=== PATIENT | female | born 1975 | race Native Hawaiian/Other Pacific Islander ===

== ENCOUNTER 2017-09-20 18:57 | Emergency (ER) | payer BC, OTHER ==
[2017-09-20 19:03] VITALS: RESP 18
[2017-09-20] MEDS ORDERED: ACETAMINOPHEN TAB 500 MG TAB PO STA (19:09)
[2017-09-20] MEDS ORDERED: IBUPROFEN 600 MG TAB PO STA (19:09)
--- NOTE | 2017-09-20 19:16 | ED ---
General Adult HPI - General Chief complaint: Upper Respiratory Infection Stated complaint: COUGH Time Seen by Provider: 09/20/17 19:06 Source: patient, RN notes reviewed Mode of arrival: ambulatory Limitations: no limitations - History of Present Illness Initial comments: Patient is a pleasant 42-year-old female presenting to the emergency department with cough. Symptoms have been present the past 2-3 days. Patient has cough and is just starting to get some mild sputum production. Patient does have some associated dyspnea. Patient also has some congestion and sore throat. Patient has noticed fevers today. No recent Tylenol or Motrin. Patient does have a history of sarcoidosis and is on methotrexate for this. - Related Data Home Medications Medication Instructions Recorded Confirmed FLUoxetine HCL [PROzac] 40 mg PO DAILY 09/20/17 09/20/17 Folic Acid 1 mg PO DAILY 09/20/17 09/20/17 Methotrexate Sodium [Methotrexate] 12.5 mg PO MO 09/20/17 09/20/17 Topiramate [Topamax] 100 mg PO BID 09/20/17 09/20/17 Previous Rx's Medication Instructions Recorded Oseltamivir [Tamiflu] 75 mg PO Q12HR #9 cap 09/20/17 Allergies Allergy/AdvReac Type Severity Reaction Status Date / Time No Known Allergies Allergy Verified 09/20/17 19:43 Review of Systems ROS Statement: Those systems with pertinent positive or pertinent negative responses have been documented in the HPI. ROS Other: All systems not noted in ROS Statement are negative. Constitutional: Reports: fever Eyes: Denies: eye pain ENT: Reports: throat pain, congestion. Denies: ear pain Respiratory: Reports: cough, dyspnea Cardiovascular: Denies: chest pain Endocrine: Reports: fatigue Gastrointestinal: Denies: abdominal pain Genitourinary: Denies: dysuria Musculoskeletal: Denies: back pain Skin: Denies: rash Neurological: Denies: weakness Past Medical History Past Medical History: Chest Pain / Angina, Hypertension, Seizure Disorder Additional Past Medical History / Comment(s): Enlarged heart History of Any Multi-Drug Resistant Organisms: None Reported Additional Past Surgical History / Comment(s): Cysts removed x6, OVARIAN SURGERY Past Anesthesia/Blood Transfusion Reactions: No Reported Reaction Past Psychological History: Anxiety, Depression Smoking Status: Current every day smoker Past Alcohol Use History: Occasional Past Drug Use History: None Reported - Past Family History Mother Family Medical History: Renal Disease General Exam Limitations: no limitations General appearance: alert, in no apparent distress Head exam: Present: atraumatic Eye exam: Present: normal appearance, PERRL ENT exam: Present: normal oropharynx Neck exam: Present: normal inspection Respiratory exam: Present: normal lung sounds bilaterally Cardiovascular Exam: Present: regular rate, normal rhythm GI/Abdominal exam: Present: soft. Absent: tenderness Extremities exam: Present: normal inspection Neurological exam: Present: alert Psychiatric exam: Present: normal affect, normal mood Skin exam: Present: normal color Course Vital Signs 09/20/17 18:59 Temperature 101.9 F H Pulse Rate 80 Respiratory 18 Rate Blood Pressure 150/97 O2 Sat by Pulse 99 Oximetry - Reevaluation(s) Reevaluation #1: 09/20/17 19:58 Patient clarifies she is on methotrexate, not chemotherapy Medical Decision Making - Medical Decision Making Patient reevaluated and is starting to feel somewhat better. Patient updated on results. Patient states she does have an appointment in the morning with her buddhist monk. Patient will be covered with Tamiflu even though symptoms are greater than 2 days secondary to being on methotrexate. Labs and x-ray looks well. - Lab Data Result diagrams: 09/20/17 19:29 09/20/17 19:29 Lab Results 09/20/17 09/20/17 09/20/17 Range/Units 19:29 19:29 19:29 WBC 4.3 (3.8-10.6) k/uL RBC 4.49 (3.80-5.40) m/uL Hgb 13.1 (11.4-16.0) gm/dL Hct 39.8 (34.0-46.0) % MCV 88.7 (80.0-100.0) fL MCH 29.2 (25.0-35.0) pg MCHC 33.0 (31.0-37.0) g/dL RDW 14.2 (11.5-15.5) % Plt Count 194 (150-450) k/uL Neutrophils % 82 % Lymphocytes % 8 % Monocytes % 6 % Eosinophils % 2 % Basophils % 1 % Neutrophils # 3.5 (1.3-7.7) k/uL Lymphocytes # 0.3 L (1.0-4.8) k/uL Monocytes # 0.2 (0-1.0) k/uL Eosinophils # 0.1 (0-0.7) k/uL Basophils # 0.0 (0-0.2) k/uL Sodium 142 (137-145) mmol/L Potassium 4.3 (3.5-5.1) mmol/L Chloride 107 (98-107) mmol/L Carbon Dioxide 24 (22-30) mmol/L Anion Gap 11 mmol/L BUN 14 (7-17) mg/dL Creatinine 0.90 (0.52-1.04) mg/dL Est GFR (CKD-EPI)AfAm >90 (>60 ml/min/1.73 sqM) Est GFR (CKD-EPI)NonAf 79 (>60 ml/min/1.73 sqM) Glucose 98 (74-99) mg/dL Plasma Lactic Acid Yaya 0.9 (0.7-2.0) mmol/L Calcium 9.1 (8.4-10.2) mg/dL Total Bilirubin 0.2 (0.2-1.3) mg/dL AST 19 (14-36) U/L ALT 23 (9-52) U/L Alkaline Phosphatase 64 (38-126) U/L Total Protein 7.4 (6.3-8.2) g/dL Albumin 4.0 (3.5-5.0) g/dL Urine Color Urine Appearance (Clear) Urine pH (5.0-8.0) Ur Specific [place] (1.001-1.035) Urine Protein (Negative) Urine Glucose (UA) (Negative) Urine Ketones (Negative) Urine Blood (Negative) Urine Nitrite (Negative) Urine Bilirubin (Negative) Urine Urobilinogen (<2.0) mg/dL Ur Leukocyte Esterase (Negative) Ur Squamous Epith Cells (0-4) /hpf Amorphous Sediment (None) /hpf Urine Mucus (None) /hpf Influenza Type A RNA (Not Detectd) Influenza Type B (PCR) (Not Detectd) 09/20/17 09/20/17 Range/Units 19:29 19:29 WBC (3.8-10.6) k/uL RBC (3.80-5.40) m/uL Hgb (11.4-16.0) gm/dL Hct (34.0-46.0) % MCV (80.0-100.0) fL MCH (25.0-35.0) pg MCHC (31.0-37.0) g/dL RDW (11.5-15.5) % Plt Count (150-450) k/uL Neutrophils % % Lymphocytes % % Monocytes % % Eosinophils % % Basophils % % Neutrophils # (1.3-7.7) k/uL Lymphocytes # (1.0-4.8) k/uL Monocytes # (0-1.0) k/uL Eosinophils # (0-0.7) k/uL Basophils # (0-0.2) k/uL Sodium (137-145) mmol/L Potassium (3.5-5.1) mmol/L Chloride (98-107) mmol/L Carbon Dioxide (22-30) mmol/L Anion Gap mmol/L BUN (7-17) mg/dL Creatinine (0.52-1.04) mg/dL Est GFR (CKD-EPI)AfAm (>60 ml/min/1.73 sqM) Est GFR (CKD-EPI)NonAf (>60 ml/min/1.73 sqM) Glucose (74-99) mg/dL Plasma Lactic Acid Yaya (0.7-2.0) mmol/L Calcium (8.4-10.2) mg/dL Total Bilirubin (0.2-1.3) mg/dL AST (14-36) U/L ALT (9-52) U/L Alkaline Phosphatase (38-126) U/L Total Protein (6.3-8.2) g/dL Albumin (3.5-5.0) g/dL Urine Color Light Yellow Urine Appearance Cloudy H (Clear) Urine pH 7.5 (5.0-8.0) Ur Specific [place] 1.013 (1.001-1.035) Urine Protein Negative (Negative) Urine Glucose (UA) Negative (Negative) Urine Ketones Negative (Negative) Urine Blood Negative (Negative) Urine Nitrite Negative (Negative) Urine Bilirubin Negative (Negative) Urine Urobilinogen <2.0 (<2.0) mg/dL Ur Leukocyte Esterase Negative (Negative) Ur Squamous Epith Cells 1 (0-4) /hpf Amorphous Sediment Rare H (None) /hpf Urine Mucus Rare H (None) /hpf Influenza Type A RNA Not Detected (Not Detectd) Influenza Type B (PCR) Detected H (Not Detectd) Disposition Clinical Impression: Influenza Disposition: HOME SELF-CARE Condition: Stable Instructions: Influenza (ED) Additional Instructions: Please follow-up with your buddhist monk in the morning as scheduled. Hold methotrexate until further discussed with your buddhist monk. Please also follow-up with your primary care physician tomorrow. Return for uncontrolled fever, difficulty breathing, worsening symptoms or other concerns. Prescriptions: Oseltamivir [Tamiflu] 75 mg PO Q12HR #9 cap Referrals: Ambrose Lopez MD [Primary Care Provider] - 1-2 days Time of Disposition: 20:31
[2017-09-20] MEDS: SODIUM CHLORIDE 0.9% 500 ML IV SCH ×2 (19:31→19:32)
[2017-09-20 19:54] LABS: Basophils % (A) 1 %; Eosinophils # (A) 0.1 k/uL (0-0.7); Eosinophils % (A) 2 %; HCT 39.8 % (34.0-46.0); HGB 13.1 gm/dL (11.4-16.0); Lymphocytes # (A) 0.3 k/uL (1.0-4.8); Lymphocytes % (A) 8 %; MCH 29.2 pg (25.0-35.0); MCV 88.7 fL (80.0-100.0); Monocytes # (A) 0.2 k/uL (0-1.0); Monocytes % (A) 6 %; Neutrophils # (A) 3.5 k/uL (1.3-7.7); Neutrophils % (A) 82 %; Platelet Count 194 k/uL (150-450); RBC 4.49 m/uL (3.80-5.40); RDW 14.2 % (11.5-15.5); WBC 4.3 k/uL (3.8-10.6)
[2017-09-20 20:02] LABS: Amorphous Sediment,Urine Rare /hpf; Appearance,Urine Cloudy (Clear); Bilirubin,Urine Negative (Negative); Blood,Urine Negative (Negative); Color,Urine Light Yellow; Glucose,Urine (UA) Negative (Negative); Ketones,Urine Negative (Negative); Leukocyte Esterase,Urine Negative (Negative); Mucus,Urine Rare /hpf; Nitrite,Urine Negative (Negative); PH, Urine 7.5 (5.0-8.0); Protein,Urine Negative (Negative); Specific Gravity,Urine 1.013 (1.001-1.035); Squamous Epithelial Cell,Urine 1 /hpf (0-4); Urobilinogen,Urine <2.0 mg/dL (<2.0)
--- NOTE | 2017-09-20 20:07 | XR ---
EXAMINATION: XR chest 2V DATE AND TIME: 09/20/2017 7:48 PM ORDERING PROVIDER: Duran Luque DO CLINICAL INDICATION: Fever and cough, history of sarcoidosis TECHNIQUE: PA and lateral COMPARISON: 11/18/2013 DESCRIPTION: The lungs are clear. The pleural spaces are negative. The cardiac silhouette is not enlarged. The mediastinal and pleural silhouettes are unremarkable. The skeletal structures are intact without focal findings. The soft tissues are unremarkable. IMPRESSION: NO ACUTE PROCESS.
[2017-09-20 20:18] LABS: ALT 23 U/L (9-52); AST 19 U/L (14-36); Alkaline Phosphatase 64 U/L (38-126); Anion Gap 11 mmol/L; Blood Urea Nitrogen 14 mg/dL (7-17); Calcium 9.1 mg/dL (8.4-10.2); Carbon Dioxide 24 mmol/L (22-30); Chloride 107 mmol/L (98-107); Glucose 98 mg/dL (74-99); Potassium 4.3 mmol/L (3.5-5.1); Sodium 142 mmol/L (137-145); Total Bilirubin 0.2 mg/dL (0.2-1.3); Total Protein 7.4 g/dL (6.3-8.2)
[2017-09-20] MEDS ORDERED: OSELTAMIVIR 75 MG CAP PO STA (20:28)
[2017-09-20 20:51] VITALS: BP 118/87; PULSE 69; TEMP 98.2
== END 2017-09-20 20:51 | disposition home or self-care (01) ==
LOC: EC 18:57
DX: J11.1 Influenza due to unidentified influenza virus with other respiratory manifestations (principal); G40.909 Epilepsy, unspecified, not intractable, without status epilepticus; F32.9 Major depressive disorder, single episode, unspecified; F41.9 Anxiety disorder, unspecified; F17.200 Nicotine dependence, unspecified, uncomplicated; Z79.899 Other long term (current) drug therapy
CPT/HCPCS: 36415; 71046; 80053; 81001; 83605; 85025; 87040; 87070; 87086; 87205; 87502; 96360; 96361; 99283

== ENCOUNTER → 2018-10-31 | Outpatient (CLI) | payer BC, OTHER ==
[2018-10-31 08:22] LABS: Appearance,Urine Clear (Clear); Bilirubin,Urine Negative (Negative); Blood,Urine Negative (Negative); Color,Urine Yellow; Glucose,Urine (UA) Negative (Negative); Ketones,Urine Negative (Negative); Leukocyte Esterase,Urine Negative (Negative); Nitrite,Urine Negative (Negative); Protein,Urine Trace (Negative); Specific Gravity,Urine 1.026 (1.001-1.035)
[2018-10-31 08:28] LABS: Basophils % (A) 1 %; Eosinophils # (A) 0.3 k/uL (0-0.7); Eosinophils % (A) 7 %; HCT 44.4 % (34.0-46.0); HGB 14.3 gm/dL (11.4-16.0); Lymphocytes # (A) 0.7 k/uL (1.0-4.8); Lymphocytes % (A) 17 %; MCH 27.6 pg (25.0-35.0); MCHC 32.3 g/dL (31.0-37.0); MCV 85.5 fL (80.0-100.0); Monocytes # (A) 0.2 k/uL (0-1.0); Monocytes % (A) 6 %; Neutrophils # (A) 2.8 k/uL (1.3-7.7); Neutrophils % (A) 67 %; Platelet Count 224 k/uL (150-450); RDW 14.1 % (11.5-15.5); WBC 4.1 k/uL (3.8-10.6)
--- NOTE | 2018-10-31 08:42 | XR ---
EXAMINATION TYPE: XR chest 2V DATE OF EXAM: 10/31/2018 COMPARISON: 09/20/2018 HISTORY: Chest pain TECHNIQUE: Frontal and lateral views of the chest are obtained. FINDINGS: There is no focal air space opacity. No evidence for pneumothorax. No pleural effusion. The cardiac silhouette size is within normal limits. The osseous structures are grossly intact. IMPRESSION: 1. No acute cardiopulmonary process.
[2018-10-31 12:55] LABS: Erythrocyte Sedimentation Rate 6 mm/hr (0-20)
[2018-10-31 18:39] LABS: Albumin 3.9 g/dL (3.80-4.90); Albumin/Globulin Ratio 1.77 (1.60-3.17); Anion Gap 8.4 mmol/L (4.00-12.00); C Reactive Protein 1.6 mg/dL (0.0-0.8); Carbon Dioxide 26.6 mmol/L (21.6-31.8); Globulin 2.2 g/dL (1.6-3.3); LDL Cholesterol,Calculated 85.6 mg/dL (0.0-131.0); Magnesium 1.9 mg/dL (1.5-2.4); Phosphorus 4.1 mg/dL (2.4-5.1); Potassium 4.4 mmol/L (3.5-5.5); Total Bilirubin 0.5 mg/dL (0.3-1.2); Total Protein 6.1 g/dL (6.2-8.2); VLDL Calculation 35.4 mg/dL (5.00-40.00)
== END | disposition home or self-care (01) ==
LOC: LABWHC1 07:24
PROVIDERS: ATTEND Internal Medicine
DX: D86.9 Sarcoidosis, unspecified (principal); D64.9 Anemia, unspecified; E83.52 Hypercalcemia; E78.5 Hyperlipidemia, unspecified; N39.0 Urinary tract infection, site not specified; G40.909 Epilepsy, unspecified, not intractable, without status epilepticus
CPT/HCPCS: 36415; 71046; 80053; 80061; 81003; 82164; 82306; 82550; 83735; 84100; 84443; 85025; 85652; 86140

== ENCOUNTER → 2019-01-28 | Outpatient (CLI) | payer BC, OTHER ==
--- NOTE | 2019-01-28 16:04 | US ---
EXAMINATION TYPE: US extremity nonvasc mass RT DATE OF EXAM: 01/28/2019 COMPARISON: NONE CLINICAL HISTORY: R22.41 Localized swelling, mass and lump, right. Lump/soft tissue swelling right lo wer leg just below the knee that changes in size Scanned within patient's area of concern, right lower leg just inferior to knee, unable to visualize any abnormality by ultrasound at this time IMPRESSION: No significant abnormalities evident. MRI with overlying marker may be of benefit.
== END | disposition home or self-care (01) ==
LOC: RADUSWWP 15:33
PROVIDERS: ATTEND Internal Medicine
DX: R22.41 Localized swelling, mass and lump, right lower limb (principal)

== ENCOUNTER 2019-04-24 18:28 | Emergency (ER) | payer BC, OTHER ==
[2019-04-24 18:39] VITALS: RESP 18; TEMP 98.5
[2019-04-24 18:46] VITALS: BP 121/83; PULSE 86
[2019-04-24 18:56] LABS: Basophils # (A) 0.1 k/uL (0-0.2); Basophils % (A) 1 %; Eosinophils # (A) 0.2 k/uL (0-0.7); Eosinophils % (A) 4 %; HCT 38.2 % (34.0-46.0); HGB 12.5 gm/dL (11.4-16.0); Lymphocytes % (A) 16 %; MCHC 32.8 g/dL (31.0-37.0); MCV 85.3 fL (80.0-100.0); Mean Platelet Volume 6.9; Monocytes # (A) 0.4 k/uL (0-1.0); Monocytes % (A) 6 %; Neutrophils # (A) 4.3 k/uL (1.3-7.7); Neutrophils % (A) 71 %; Platelet Count 239 k/uL (150-450); RBC 4.47 m/uL (3.80-5.40); RDW 13.7 % (11.5-15.5); WBC 6.1 k/uL (3.8-10.6)
--- NOTE | 2019-04-24 18:59 | ED ---
Seizure HPI - General Chief Complaint: Seizure Stated Complaint: Seizure Time Seen by Provider: 04/24/19 18:41 Source: patient, EMS, RN notes reviewed Mode of arrival: EMS Limitations: no limitations - History of Present Illness Initial Comments: 43-year-old female presents emergency Department with chief complaint of seizure. Patient was presented emergency from EMS. Patient was at work when she had 3 minute seizure. Patient does have an known history of seizures in which she takes Keppra. Patient is followed by neurologist and 1. She states t hat she has a benign mass that has been present for last 5 years and they continue to monitor. Patient states her last seizure was a couple weeks ago. She states that she typically does not come the ER though this happened at work in which she called 911. Patient has a mild headache denies any blurred vision, focal weakness family states that she is at her baseline. - Related Data Home Medications Medication Instructions Recorded Confirmed FLUoxetine HCL [PROzac] 40 mg PO DAILY 09/20/17 09/20/17 Folic Acid 1 mg PO DAILY 09/20/17 09/20/17 Methotrexate Sodium [Methotrexate] 12.5 mg PO MO 09/20/17 09/20/17 Topiramate [Topamax] 100 mg PO BID 09/20/17 09/20/17 Previous Rx's Medication Instructions Recorded Oseltamivir [Tamiflu] 75 mg PO Q12HR #9 cap 09/20/17 Allergies Allergy/AdvReac Type Severity Reaction Status Date / Time No Known Allergies Allergy Verified 09/20/17 19:43 Review of Systems ROS Statement: Those systems with pertinent positive or pertinent negative responses have been documented in the HPI. ROS Other: All systems not noted in ROS Statement are negative. Past Medical History Past Medical History: Chest Pain / Angina, Hypertension, Seizure Disorder Additional Past Medical History / Comment(s): Enlarged heart History of Any Multi-Drug Resistant Organisms: None Reported Additional Past Surgical History / Comment(s): Cysts removed x6, OVARIAN SURGERY Past Anesthesia/Blood Transfusion Reactions: No Reported Reaction Past Psychological History: Anxiety, Depression Smoking Status: Former smoker Past Alcohol Use History: Occasional Past Drug Use History: None Reported - Past Family History Mother Family Medical History: Renal Disease General Exam Limitations: no limitations General appearance: alert, in no apparent distress Head exam: Present: atraumatic, normocephalic, normal inspection Eye exam: Present: normal appearance, PERRL, EOMI. Absent: scleral icterus, co njunctival injection, periorbital swelling ENT exam: Present: normal exam, normal oropharynx, mucous membranes moist Neck exam: Present: normal inspection, full ROM. Absent: tenderness, meningismus, lymphadenopathy Respiratory exam: Present: normal lung sounds bilaterally. Absent: respiratory distress, wheezes, rales, rhonchi, stridor Cardiovascular Exam: Present: regular rate, normal rhythm, normal heart sounds. Absent: systolic murmur, diastolic murmur, rubs, gallop, clicks GI/Abdominal exam: Present: soft, normal bowel sounds. Absent: distended, tenderness, guarding, rebound, rigid Neurological exam: Present: alert, oriented X3, CN II-XII intact, reflexes normal, other (Finger to nose intact bilaterally without overshooting). Absent: motor sensory deficit Skin exam: Present: warm, dry, intact, normal color. Absent: rash Course Vital Signs 04/24/19 04/24/19 18:33 18:45 Temperature 98.5 F Pulse Rate 83 86 Respiratory 18 18 Rate Blood Pressure 139/98 121/83 O2 Sat by Pulse 96 96 Oximetry Medical Decision Making - Medical Decision Making EKG, labs unremarkable Keppra level is pending. Patient has recurrent seizures patient only presented because were called she states that she did not want to be here. Patient is advised follow-up with her neurologist return for any worsening symptoms. - Lab Data Result diagrams: 04/24/19 18:45 04/24/19 18:45 Lab Results 04/24/19 04/24/19 Range/Units 18:45 18:45 WBC 6.1 (3.8-10.6) k/uL RBC 4.47 (3.80-5.40) m/uL Hgb 12.5 (11.4-16.0) gm/dL Hct 38.2 (34.0-46.0) % MCV 85.3 (80.0-100.0) fL MCH 28.0 (25.0-35.0) pg MCHC 32.8 (31.0-37.0) g/dL RDW 13.7 (11.5-15.5) % Plt Count 239 (150-450) k/uL Neutrophils % 71 % Lymphocytes % 16 % Monocytes % 6 % Eosinophils % 4 % Basophils % 1 % Neutrophils # 4.3 (1.3-7.7) k/uL Lymphocytes # 1.0 (1.0-4.8) k/uL Monocytes # 0.4 (0-1.0) k/uL Eosinophils # 0.2 (0-0.7) k/uL Basophils # 0.1 (0-0.2) k/uL Sodium 138 (137-145) mmol/L Potassium 3.9 (3.5-5.1) mmol/L Chloride 102 (98-107) mmol/L Carbon Dioxide 23 (22-30) mmol/L Anion Gap 13 mmol/L BUN 13 (7-17) mg/dL Creatinine 0.74 (0.52-1.04) mg/dL Est GFR (CKD-EPI)AfAm >90 (>60 ml/min/1.73 sqM) Est GFR (CKD-EPI)NonAf >90 (>60 ml/min/1.73 sqM) Glucose 199 H (74-99) mg/dL Calcium 9.2 (8.4-10.2) mg/dL Total Bilirubin 0.3 (0.2-1.3) mg/dL AST 28 (14-36) U/L ALT 27 (9-52) U/L Alkaline Phosphatase 103 (38-126) U/L Total Protein 7.8 (6.3-8.2) g/dL Albumin 4.2 (3.5-5.0) g/dL - EKG Data -: EKG Interpreted by Ct EKG Comments: EKG performed at 19:10 normal sinus rhythm rate of 76 AL 162 QRS 84 QT/QTC 41 4/465 Disposition Clinical Impression: Generalized seizure, Seizure disorder Disposition: HOME SELF-CARE Condition: Stable Instructions (If sedation given, give patient instructions): Recurrent Seizures in Adults (ED) Additional Instructions: Please return to the Emergency Department if symptoms worsen or any other concerns. Is patient prescribed a controlled substance at d/c from ED?: No Referrals: Elton Ferguson MD [Primary Care Provider] - 1-2 days Time of Disposition: 19:50
[2019-04-24 19:04] LABS: ALT 27 U/L (9-52); AST 28 U/L (14-36); African American GFR (CKD) >90 (>60 ml/min/1.73 sqM); Albumin 4.2 g/dL (3.5-5.0); Alkaline Phosphatase 103 U/L (38-126); Anion Gap 13 mmol/L; Blood Urea Nitrogen 13 mg/dL (7-17); Calcium 9.2 mg/dL (8.4-10.2); Carbon Dioxide 23 mmol/L (22-30); Chloride 102 mmol/L (98-107); Glucose 199 mg/dL (74-99); Potassium 3.9 mmol/L (3.5-5.1); Sodium 138 mmol/L (137-145); Total Bilirubin 0.3 mg/dL (0.2-1.3); Total Protein 7.8 g/dL (6.3-8.2)
== END 2019-04-24 20:05 | disposition home or self-care (01) ==
LOC: EC 18:28
DX: G40.409 Other generalized epilepsy and epileptic syndromes, not intractable, without status epilepticus (principal); R51 Headache; R22.9 Localized swelling, mass and lump, unspecified; F32.9 Major depressive disorder, single episode, unspecified; F41.9 Anxiety disorder, unspecified; Z87.891 Personal history of nicotine dependence; Z79.899 Other long term (current) drug therapy; Z98.890 Other specified postprocedural states
CPT/HCPCS: 36415; 80053; 80177; 85025; 93005; 99284

== ENCOUNTER → 2019-08-07 | Outpatient (CLI) | payer OTHER ==
--- NOTE | 2019-08-07 09:58 | MR ---
EXAMINATION TYPE: MR shoulder LT wo con DATE OF EXAM: 08/07/2019 COMPARISON: Outside left shoulder x-ray July 31, 2019 HISTORY: Left shoulder pain per order. Pain for a couple months with difficulty raising overhead per patient. TECHNIQUE: Multiplanar, multisequence imaging of the left shoulder is performed without contrast. FINDINGS: Rotator Cuff: There is focus of increased signal with thinning of the more posterior 1/2-1/3 portion of the distal supraspinatus tendon seen best coronal image 13 and sagittal image 10 . Infraspinatus t endon is intact. Subscapularis tendon is intact. Rotator cuff muscle bulk is preserved. Acromioclavicular Joint: Moderate narrowing with mild spurring. Underlying fat plane is maintained. M ild to moderate capsular hypertrophy. Distal acromion morphology is type II or downsloping with sugge stion of underlying impingement. Glenohumeral Joint: Mild to moderate narrowing with [id number] joint effusion. No significant spurring. Labrum: The superior labrum appears grossly intact given the limitation of non-arthrogram study. Area of increased signal is fairly well-defined favoring recess coronal image 13 over tear. Biceps Tendon: The long head of biceps is in normal location within bicipital groove. Bone marrow signal: There is some subchondral cystic change in the superior lateral humeral head. The re are additional scattered foci of subcentimeter low T1 and increased T2 lesions throughout the visu alized proximal humerus. I see no definitive corresponding bony lesions on x-ray. Few similar type le sions are seen in the visualized portion of the distal clavicle. Other: No additional significant abnormality is appreciated. IMPRESSION: 1. Partial tear/tendinosis of the posterior fibers of the distal supraspinatus tendon. 2. Mild to moderate degenerative changes glenohumeral and acromioclavicular joint as detailed above. Type II downsloping acromion noted. 3. Nonspecific diffuse osseous lesions on MRI. Clinical correlation advised. Osteopoikilosis is in th e differential but no definitive small sclerotic foci in outside x-ray. Metastatic disease or myeloma need to be considered. Consider nuclear medicine bone scan and/or skeletal survey follow-up based on clinical correlation.
== END | disposition home or self-care (01) ==
LOC: RADMRIMAIN 07:50
PROVIDERS: ATTEND Orthopaedic Surgery
DX: M19.012 Primary osteoarthritis, left shoulder (principal)

== ENCOUNTER → 2019-08-20 | Outpatient (CLI) | payer OTHER ==
--- NOTE | 2019-08-20 13:43 | NM ---
EXAMINATION TYPE: NM bone 3 phase DATE OF EXAM: 08/20/2019 COMPARISON: Correlation MRI 08/07/2019 and radiograph 07/31/2019 HISTORY: 43-year-old female left upper arm pain, left shoulder pain. Technique: Triple phase bone scintigraphy was performed following the injection of 25.5 mCi Tc 99m MD P. Immediate images and 3 hours post injection images acquired. Imaging was centered over the thorax . FINDINGS: Flow images show incoming bolus from the right arm. No asymmetric hyperemia identified at either shou lder. Symmetric appearance on the pool images. Delayed images show no significant abnormal increased uptake on either side. IMPRESSION: No scintigraphic abnormality identified at the left shoulder or upper left arm on three-phase bone sc an.
== END | disposition home or self-care (01) ==
LOC: RADNMMAIN 07:34
PROVIDERS: ATTEND Orthopaedic Surgery
DX: M79.622 Pain in left upper arm (principal)
CPT/HCPCS: 78315; A9503

== ENCOUNTER 2019-11-23 10:23 | Emergency (ER) | payer OTHER ==
[2019-11-23 10:35] VITALS: TEMP 98.1
[2019-11-23] MEDS ORDERED: KETOROLAC 30 MG/ML 1 ML VIAL IM STA (11:24)
[2019-11-23] MEDS ORDERED: MORPHINE SULFATE 4 MG/ML SYRINGE IM STA (11:24)
[2019-11-23 11:42] VITALS: RESP 20
--- NOTE | 2019-11-23 12:06 | ED ---
General Adult HPI - General Chief complaint: Extremity Injury, Upper Stated complaint: shoulder pain Time Seen by Provider: 11/23/19 10:35 Source: patient Mode of arrival: ambulatory Limitations: no limitations - History of Present Illness Initial comments: The patient is a 44-year-old female past history of sarcoidosis and frozen left shoulder presents emergency Department with reported worsening left shoulder pain. Patient was seen in the emergency department in August for similar pain. She is diagnosed with a lytic lesion and was transferred down to the [facility] for biopsy. There she was sent to [facility] in [place] because there is concern for malignancy. 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 She was discharged home and told to follow-up with her local orthopedic doctor. She was seen by Dr. Toney who was given a do surgery however because of the Covid he was unable to schedule her until December. She then found Dr. Trujillo out of [facility]. She still does not have a scheduled surgery. States that she take Motrin 800 mg at home for her pain however this hasn't been helping as of recently. States she can no longer tolerate the pain. Admits to chronic weakness in his extremity. Denies any worsening pain or weakness, she just no longer can tolerate it. States she has no other medications at home for her symptoms. She denies any fevers or chills. No nausea or vomiting. No back or neck pain. Denies any new trauma. The patient is right-handed. There are no other alleviating, precipitating or modifying factors - Related Data Home Medications Medication Instructions Recorded Confirmed Folic Acid 1 mg PO DAILY 09/20/17 11/23/19 FLUoxetine HCL [PROzac] 20 mg PO DAILY 08/21/19 11/23/19 Menthol [Biofreeze] 1 applic TOPICAL DAILY PRN 08/21/19 11/23/19 amLODIPine [Norvasc] 10 mg PO HS 08/21/19 11/23/19 levETIRAcetam [Keppra] 2,000 mg PO HS 08/22/19 11/23/19 Ergocalciferol [Vitamin D2] 50,000 unit PO Q7D 11/23/19 11/23/19 Topiramate [Topamax] 100 mg PO BID 11/23/19 11/23/19 Previous Rx's Medication Instructions Recorded Methotrexate Sodium [Methotrexate] 15 mg PO TH tab 08/23/19 Hydrocodone/Acetaminophen [Portal 1 tab PO Q4HR PRN #18 tab 11/23/19 5-325] Allergies Allergy/AdvReac Type Severity Reaction Status Date / Time No Known Allergies Allergy Verified 11/23/19 10:53 Review of Systems ROS Statement: Those systems with pertinent positive or pertinent negative responses have been documented in the HPI. ROS Other: All systems not noted in ROS Statement are negative. Past Medical History Past Medical History: Chest Pain / Angina, Hypertension, Seizure Disorder Additional Past Medical History / Comment(s): Enlarged heart, sarcoidosis History of Any Multi-Drug Resistant Organisms: None Reported Additional Past Surgical History / Comment(s): Cysts removed x6, OVARIAN SURGERY, Lt cervical LN FNA Past Anesthesia/Blood Transfusion Reactions: No Reported Reaction Past Psychological History: Anxiety, Depression Smoking Status: Former smoker Past Alcohol Use History: None Reported Past Drug Use History: None Reported - Past Family History Mother Family Medical History: Renal Disease General Exam Limitations: no limitations General appearance: alert, in no apparent distress ENT exam: Present: normal exam, mucous membranes moist Neck exam: Present: normal inspection. Absent: tenderness, meningismus, lymphadenopathy Respiratory exam: Present: normal lung sounds bilaterally. Absent: respiratory distress, wheezes, rales, rhonchi, stridor Cardiovascular Exam: Present: regular rate, normal rhythm, normal heart sounds. Absent: systolic murmur, diastolic murmur, rubs, gallop, clicks Extremities exam: Present: tenderness (left glenohumeral joint. Left arm pulled toward patients body in adducted fashion. 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 Intact sensation bilateral upper extremities. Compartments are soft. 2+ DP and PT pulses) Course Vital Signs 11/23/19 11/23/19 11/23/19 10:32 10:34 11:34 Temperature 98.1 F Pulse Rate 85 74 Respiratory 18 20 20 Rate Blood Pressure 163/111 145/102 O2 Sat by Pulse 98 98 Oximetry 11/23/19 12:13 Temperature Pulse Rate 70 Respiratory 20 Rate Blood Pressure 137/96 O2 Sat by Pulse 98 Oximetry Medical Decision Making - Medical Decision Making Upon arrival the patient is placed into room 1. A thorough history and physical exam is performed. Patient has had extensive workup in regards to her left shoulder pain without any new symptoms therefore I do not believe any imaging is necessary. This is discussed with the patient she does agree to this as well. She is requesting something for pain control. She does have a ride home. The patient was given 4 mg of morphine IM and 30 mg of Toradol. She is reevaluated and reports to improved pain. This time the patient was discharged home with a prescription for Portal. Side effect profile is discussed. She does sign an opiate start talking form. I inserted her that she needs to follow-up with Dr. Trujillo for further medication refills. The patient understood this. If she has any new or worsening symptoms she should return the emergency room. Patient was in agreement treatment plan she is discharged home in stable condition Disposition Clinical Impression: Sarcoidosis, Left shoulder pain Disposition: HOME SELF-CARE Condition: Stable Instructions (If sedation given, give patient instructions): Rotator Cuff Tendinitis (ED) Additional Instructions: Please call Dr. Trujillo and notify him of your pain. Take the medication as directed. Return to the emergency room for any new or worsening symptoms Prescriptions: Hydrocodone/Acetaminophen [Portal 5-325] 1 tab PO Q4HR PRN #18 tab PRN Reason: Pain Is patient prescribed a controlled substance at d/c from ED?: Yes When asked, does pt state using other controlled substances?: No If prescribed controlled substance>3 days was MAPS reviewed?: Prescribed <3 Days If opioid is for acute pain is fill amount 7 days or less?: Yes If Rx opioid, was Start Talking consent form obtained?: Yes Referrals: Elton Ferguson MD [Primary Care Provider] - 1-2 days Nestor Trujillo MD [REFERRING] - 1-2 days Time of Disposition: 12:04
[2019-11-23 12:14] VITALS: BP 137/96; PULSE 70
== END 2019-11-23 12:15 | disposition home or self-care (01) ==
LOC: EC 10:23
DX: M25.512 Pain in left shoulder (principal); D86.9 Sarcoidosis, unspecified; R53.1 Weakness; I10 Essential (primary) hypertension; G40.909 Epilepsy, unspecified, not intractable, without status epilepticus; F41.9 Anxiety disorder, unspecified; F32.9 Major depressive disorder, single episode, unspecified; Z87.891 Personal history of nicotine dependence; Z79.899 Other long term (current) drug therapy
CPT/HCPCS: 99283; 96372 ×2; J2270; J1885

== ENCOUNTER 2020-02-09 23:00 | Emergency (ER) | payer OTHER ==
[2020-02-09] MEDS ORDERED: MORPHINE SULFATE 4 MG/ML SYRINGE IV STA (23:35)
[2020-02-09] MEDS ORDERED: SODIUM CHLORIDE 0.9% 1,000 ML IV ONE (23:35)
[2020-02-09] MEDS ORDERED: ONDANSETRON 4 MG/2 ML VIAL IVP STA (23:35)
[2020-02-09 23:53] LABS: Basophils % (A) 1 %; Eosinophils # (A) 0.2 k/uL (0-0.7); Eosinophils % (A) 4 %; HCT 36.4 % (34.0-46.0); HGB 11.5 gm/dL (11.4-16.0); Lymphocytes # (A) 1.6 k/uL (1.0-4.8); Lymphocytes % (A) 29 %; MCH 28.9 pg (25.0-35.0); MCHC 31.6 g/dL (31.0-37.0); MCV 91.3 fL (80.0-100.0); Mean Platelet Volume 7.8; Monocytes # (A) 0.2 k/uL (0-1.0); Monocytes % (A) 4 %; Neutrophils # (A) 3.2 k/uL (1.3-7.7); Neutrophils % (A) 60 %; Platelet Count 232 k/uL (150-450); RBC 3.99 m/uL (3.80-5.40); RDW 13.1 % (11.5-15.5); WBC 5.4 k/uL (3.8-10.6)
[2020-02-10 00:02] LABS: ALT 21 U/L (4-34); AST 26 U/L (14-36); African American GFR (CKD) >90 (>60 ml/min/1.73 sqM); Albumin 3.9 g/dL (3.5-5.0); Alkaline Phosphatase 70 U/L (38-126); Anion Gap 5 mmol/L; Blood Urea Nitrogen 18 mg/dL (7-17); Calcium 8.6 mg/dL (8.4-10.2); Carbon Dioxide 25 mmol/L (22-30); Chloride 106 mmol/L (98-107); Glucose 142 mg/dL (74-99); Magnesium 2.1 mg/dL (1.6-2.3); Non-African American GFR(CKD) >90 (>60 ml/min/1.73 sqM); Potassium 3.7 mmol/L (3.5-5.1); Sodium 136 mmol/L (137-145); Total Bilirubin 0.3 mg/dL (0.2-1.3); Total Protein 6.7 g/dL (6.3-8.2)
--- NOTE | 2020-02-10 00:25 | XR ---
EXAMINATION TYPE: XR tibia fibula bilateral DATE OF EXAM: 02/10/2020 COMPARISON: NONE HISTORY: Pain TECHNIQUE: 4 views FINDINGS: 2 views of each tibia and fibula were obtained. I see no fracture nor dislocation. Joint sp aces are fairly normal. There is some spurring on the right patella. There are no pathologic calcific ations around the tibia and fibula. I see no focal bone destruction. IMPRESSION: Negative tibia and fibula exam. Mild spurring on the patella.
--- NOTE | 2020-02-10 00:37 | CT ---
EXAMINATION TYPE: CT brain wo con DATE OF EXAM: 02/10/2020 COMPARISON: 02/05/2014 HISTORY: headache CT DLP: 1091.4 mGycm Automated exposure control for dose reduction was used. Ventricles and sulci appear normal. There is no mass effect nor midline shift. There is no sign of in tracranial hemorrhage. There is no evidence of cerebral edema. The calvarium appears normal. IMPRESSION: Normal unenhanced head CT scan. No change.
--- NOTE | 2020-02-10 01:13 | XR ---
EXAMINATION TYPE: XR chest 2V DATE OF EXAM: 02/10/2020 COMPARISON: 08/21/2019 HISTORY: Short of breath TECHNIQUE: 2 views FINDINGS: There is no heart failure nor confluent pneumonic infiltrate. Costophrenic angles are clear . Heart appears slightly enlarged. IMPRESSION: Mild cardiomegaly. No active cardiopulmonary disease. No change.
--- NOTE | 2020-02-10 02:05 | ED ---
General Adult HPI - General Chief complaint: Extremity Problem,Nontraumatic Stated complaint: Swelling/numbness in feet Time Seen by Provider: 02/09/20 23:09 Source: patient, RN notes reviewed, old records reviewed Mode of arrival: wheelchair Limitations: no limitations - History of Present Illness Initial comments: 44-year-old female patient past medical history of sarcoidosis mildly enlarged her presents to ED for evaluation. Patient reports that she noticed that about 2:00 she is having some paresthesias to her lower extremity at the pain in the anterior tibial region. She denies a chest pain shortness of breath. Does report that she has had a mild headache which feels similar to her migraines in the past. Reports that it is not the worst headache of her life and denies any red flag symptoms in regards to the headache. Patient reports that the sarcoidosis affects her bones in particular and she has had of shoulder surgeries because of a Denies any other complaints. Systemic: Pt denies fatigue, fever/chills, rash. Pt denies weakness, night sweats, weight loss. Neuro: Pt denies headache, visual disturbances, syncope or pre-syncope. HEENT: Pt denies ocular discharge or irritation, otalgia, rhinorrhea, pharyngitis or notable lymphadenopathy. Cardiopulmonary: Pt denies chest pain, SOB, heart palpitations, dyspnea on exertion. Abdominal/GI: Pt denies abdominal pain, n/v/d. : Pt denies dysuria, burning w/ urination, frequency/urgency. Denies new onset urinary or bowel incontinence. MSK: Pt denies myalgia, loss of strength or function in extremities. Neuro: Pt denies new onset weakness. - Related Data Home Medications Medication Instructions Recorded Confirmed Folic Acid 1 mg PO DAILY 09/20/17 11/23/19 FLUoxetine HCL [PROzac] 20 mg PO DAILY 08/21/19 11/23/19 Menthol [Biofreeze] 1 applic TOPICAL DAILY PRN 08/21/19 11/23/19 amLODIPine [Norvasc] 10 mg PO HS 08/21/19 11/23/19 levETIRAcetam [Keppra] 2,000 mg PO HS 08/22/19 11/23/19 Ergocalciferol [Vitamin D2] 50,000 unit PO Q7D 11/23/19 11/23/19 Topiramate [Topamax] 100 mg PO BID 11/23/19 11/23/19 Previous Rx's Medication Instructions Recorded metHOTREXate sodium [Methotrexate] 15 mg PO TH tab 08/23/19 Hydrocodone/Acetaminophen [[place] 1 tab PO Q4HR PRN #18 tab 11/23/19 5-325] Allergies Allergy/AdvReac Type Severity Reaction Status Date / Time No Known Allergies Allergy Verified 02/09/20 23:06 Review of Systems ROS Statement: Those systems with pertinent positive or pertinent negative responses have been documented in the HPI. ROS Other: All systems not noted in ROS Statement are negative. Past Medical History Past Medical History: Chest Pain / Angina, Hypertension, Seizure Disorder Additional Past Medical History / Comment(s): Enlarged heart, sarcoidosis History of Any Multi-Drug Resistant Organisms: None Reported Additional Past Surgical History / Comment(s): Cysts removed x6, OVARIAN SURGERY, Lt cervical LN FNA Past Anesthesia/Blood Transfusion Reactions: No Reported Reaction Past Psychological History: Anxiety, Depression Smoking Status: Never smoker Past Alcohol Use History: Occasional Past Drug Use History: None Reported - Past Family History Mother Family Medical History: Renal Disease General Exam - General Exam Comments Initial Comments: Constitutional: NAD, AOX3, Pt has pleasant affect. HEENT: NC/AT, trachea midline, neck supple, no lymphadenopathy. External ears appear normal, without discharge. Mucous membranes moist. Eyes PERRLA, EOM intact. There is no scleral icterus. No pallor noted. Cardiopulmonary: RRR, no murmurs, rubs or gallops, no JVD noted. Lungs CTAB in anterior and posterior miranda. No peripheral edema. Abdominal exam: Abdomen soft and non-distended. Abdomen non-tender to palpation in all 4 quadrants. Bowel sounds active in LLQ. No hepatosplenomegaly. No ecchymosis Neuro: CN II-XII intact. No nuchal rigidity. No raccon eyes, no matthews sign, no hemotympanum. No cervical spinal tenderness. MSK: No posterior calf tenderness bilaterally, homans sign negative bilaterally. Posterior tibialis and radial pulse +2 bilaterally. Sensation intact in upper and lower extremities. Full active ROM in upper and lower extremities, 5/5 stregnth. No skin changes. Anterior tibial region is mildly tender bilaterally. Limitations: no limitations Course Vital Signs 02/09/20 02/09/20 02/10/20 23:01 23:25 00:00 Temperature 98.3 F Pulse Rate 67 63 66 Respiratory 16 14 14 Rate Blood Pressure 158/85 148/98 159/95 O2 Sat by Pulse 97 96 97 Oximetry 02/10/20 02:17 Temperature 97.7 F Pulse Rate 64 Respiratory 16 Rate Blood Pressure 138/88 O2 Sat by Pulse 98 Oximetry Medical Decision Making - Medical Decision Making 44-year-old female patient was ED for evaluation of lower extremity paresthesias and mild headache. Patient vital signs are stable, afebrile. Physical exam did display some tenderness of the anterior tibial region. No posterior calf tenderness whatsoever. Neurologic exam is intact. Lymph investigations are unremarkable. Brain CT negative for acute process. Tibia-fibula negative for acute process. No focal bone disruption. Chest x-ray slight mild cardiomegaly. No heart failure. Patient reports that paresthesias have resolved as well as her headache. We discharge the patient follow-up and strict return precautions. Case discussed with Dr. Humphrey. - Lab Data Result diagrams: 02/09/20 23:47 02/09/20 23:47 Lab Results 02/09/20 02/09/20 02/10/20 Range/Units 23:47 23:47 01:01 WBC 5.4 (3.8-10.6) k/uL RBC 3.99 (3.80-5.40) m/uL Hgb 11.5 (11.4-16.0) gm/dL Hct 36.4 (34.0-46.0) % MCV 91.3 (80.0-100.0) fL MCH 28.9 (25.0-35.0) pg MCHC 31.6 (31.0-37.0) g/dL RDW 13.1 (11.5-15.5) % Plt Count 232 (150-450) k/uL Neutrophils % 60 % Lymphocytes % 29 % Monocytes % 4 % Eosinophils % 4 % Basophils % 1 % Neutrophils # 3.2 (1.3-7.7) k/uL Lymphocytes # 1.6 (1.0-4.8) k/uL Monocytes # 0.2 (0-1.0) k/uL Eosinophils # 0.2 (0-0.7) k/uL Basophils # 0.0 (0-0.2) k/uL Sodium 136 L (137-145) mmol/L Potassium 3.7 (3.5-5.1) mmol/L Chloride 106 (98-107) mmol/L Carbon Dioxide 25 (22-30) mmol/L Anion Gap 5 mmol/L BUN 18 H (7-17) mg/dL Creatinine 0.56 (0.52-1.04) mg/dL Est GFR (CKD-EPI)AfAm >90 (>60 ml/min/1.73 sqM) Est GFR (CKD-EPI)NonAf >90 (>60 ml/min/1.73 sqM) Glucose 142 H (74-99) mg/dL Calcium 8.6 (8.4-10.2) mg/dL Magnesium 2.1 (1.6-2.3) mg/dL Total Bilirubin 0.3 (0.2-1.3) mg/dL AST 26 (14-36) U/L ALT 21 (4-34) U/L Alkaline Phosphatase 70 (38-126) U/L Total Protein 6.7 (6.3-8.2) g/dL Albumin 3.9 (3.5-5.0) g/dL Urine Color Yellow Urine Appearance Clear (Clear) Urine pH 6.5 (5.0-8.0) Ur Specific Alloy 1.010 (1.001-1.035) Urine Protein Negative (Negative) Urine Glucose (UA) Negative (Negative) Urine Ketones Negative (Negative) Urine Blood Negative (Negative) Urine Nitrite Negative (Negative) Urine Bilirubin Negative (Negative) Urine Urobilinogen <2.0 (<2.0) mg/dL Ur Leukocyte Esterase Negative (Negative) Disposition Clinical Impression: Headache, Paresthesia Disposition: HOME SELF-CARE Condition: Stable Instructions (If sedation given, give patient instructions): Acute Headache (ED), Paresthesia (ED) Additional Instructions: Follow-up with primary care provider tomorrow. Return to ER if any worsening symptoms. Is patient prescribed a controlled substance at d/c from ED?: No Referrals: Elton Ferguson MD [Primary Care Provider] - 1-2 days
[2020-02-10 02:18] VITALS: BP 138/88; PULSE 64; RESP 16; TEMP 97.7
[2020-02-10 02:19] LABS: Appearance,Urine Clear (Clear); Bilirubin,Urine Negative (Negative); Blood,Urine Negative (Negative); Color,Urine Yellow; Glucose,Urine (UA) Negative (Negative); Ketones,Urine Negative (Negative); Leukocyte Esterase,Urine Negative (Negative); Nitrite,Urine Negative (Negative); PH, Urine 6.5 (5.0-8.0); Protein,Urine Negative (Negative); Urobilinogen,Urine <2.0 mg/dL (<2.0)
== END 2020-02-10 02:15 | disposition home or self-care (01) ==
LOC: EC 23:00
DX: R51 Headache (principal); R20.2 Paresthesia of skin; M79.669 Pain in unspecified lower leg; I11.9 Hypertensive heart disease without heart failure; F41.9 Anxiety disorder, unspecified; F32.9 Major depressive disorder, single episode, unspecified; I20.9 Angina pectoris, unspecified; G40.909 Epilepsy, unspecified, not intractable, without status epilepticus; Z79.899 Other long term (current) drug therapy; Z98.890 Other specified postprocedural states; Z87.09 Personal history of other diseases of the respiratory system
CPT/HCPCS: 36415; 80053; 83735; 85025; 81003; 73590; 71046; 70450; 99285; 96374; 96375; 96361 ×2; J2270; J2405

== ENCOUNTER 2021-05-13 21:31 | Emergency (ER) | payer OTHER ==
[2021-05-13 22:18] VITALS: BP 149/88; PULSE 68; RESP 18; TEMP 98.3
--- NOTE | 2021-05-13 23:06 | XR ---
EXAMINATION TYPE: XR knee complete LT DATE OF EXAM: 05/13/2021 COMPARISON: NONE HISTORY: Left knee pain TECHNIQUE: 3 views FINDINGS: There is mild spurring of the patella. I see no fracture nor dislocation. There is no sign of a joint effusion. There is minor spurring of the medial femoral and tibial condyles. IMPRESSION: Mild spurring. No fracture seen.
[2021-05-13] MEDS ORDERED: HYDROcodone/APAP 5-325MG 1 EACH TAB PO STA (23:28)
--- NOTE | 2021-05-13 23:33 | ED ---
General Adult HPI - General Source: patient, family, RN notes reviewed, old records reviewed Mode of arrival: wheelchair Limitations: no limitations - History of Present Illness -: days(s) (2) Location: left, lower extremity (Knee) Radiation: non-radiation Severity scale (1-10): 10 Quality: other ("Gut wrenching ") Consistency: constant Improves with: immobilization Worsens with: movement Associated Symptoms: denies other symptoms Treatments Prior to Arrival: other (Motrin) <Noé Piper - Last Filed: 05/14/21 02:39> <Krysta Mariano - Last Filed: 05/15/21 16:40> - General Chief complaint: Extremity Problem,Nontraumatic Stated complaint: Left knee pain Time Seen by Provider: 05/13/21 23:28 - History of Present Illness Initial comments: This is a well-appearing pleasant 45-year-old female that presents to the emergency room with 2 days of left anterior knee pain. Patient states that she did not have any injury. She states she's had similar pain in her shoulder before and was told it was sarcoidosis and had to have shoulder surgery. States position of comfort is with knee extension. Flexion of the knee causes increased pain. Motrin does not help. She denies any fevers. (Noé Piper) - Related Data Home Medications Medication Instructions Recorded Confirmed Folic Acid 1 mg PO DAILY 09/20/17 11/23/19 FLUoxetine HCL [PROzac] 20 mg PO DAILY 08/21/19 11/23/19 Menthol [Biofreeze] 1 applic TOPICAL DAILY PRN 08/21/19 11/23/19 amLODIPine [Norvasc] 10 mg PO HS 08/21/19 11/23/19 levETIRAcetam [Keppra] 2,000 mg PO HS 08/22/19 11/23/19 Ergocalciferol [Vitamin D2] 50,000 unit PO Q7D 11/23/19 11/23/19 Topiramate [Topamax] 100 mg PO BID 11/23/19 11/23/19 Previous Rx's Medication Instructions Recorded metHOTREXate sodium [Methotrexate] 15 mg PO TH tab 08/23/19 Hydrocodone/Acetaminophen [[place] 1 tab PO Q4HR PRN #18 tab 11/23/19 5-325] Ibuprofen [Motrin] 800 mg PO Q6HR #30 tab 05/13/21 Allergies Allergy/AdvReac Type Severity Reaction Status Date / Time No Known Allergies Allergy Verified 05/13/21 22:16 Review of Systems ROS Other: All systems not noted in ROS Statement are negative. <Noé Piper - Last Filed: 05/14/21 02:39> ROS Other: All systems not noted in ROS Statement are negative. <Krysta Mariano Anil - Last Filed: 05/15/21 16:40> ROS Statement: Those systems with pertinent positive or pertinent negative responses have been documented in the HPI. Past Medical History Past Medical History: Chest Pain / Angina, Hypertension, Seizure Disorder Additional Past Medical History / Comment(s): Enlarged heart, sarcoidosis History of Any Multi-Drug Resistant Organisms: None Reported Additional Past Surgical History / Comment(s): Cysts removed x6, OVARIAN SURGERY, Lt cervical LN FNA Past Anesthesia/Blood Transfusion Reactions: No Reported Reaction Past Psychological History: Anxiety, Depression Smoking Status: Never smoker Past Alcohol Use History: Occasional Past Drug Use History: None Reported - Past Family History Mother Family Medical History: Renal Disease <Noé Piper - Last Filed: 05/14/21 02:39> General Exam Limitations: no limitations General appearance: alert, in no apparent distress Head exam: Present: atraumatic, normocephalic, normal inspection Eye exam: Present: normal appearance, EOMI ENT exam: Present: normal exam, normal oropharynx, mucous membranes moist Neck exam: Present: full ROM Respiratory exam: Present: normal lung sounds bilaterally. Absent: respiratory distress, wheezes, rales, rhonchi, stridor Cardiovascular Exam: Present: regular rate, normal rhythm, normal heart sounds. Absent: systolic murmur, diastolic murmur, rubs, gallop, clicks Left Knee exam: Present: tenderness, swelling (Lateral patella), full knee extension. Absent: full ROM, abrasion, laceration, ecchymosis, deformity, crepitus, dislocation, erythema Lower Leg exam: Present: normal inspection. Absent: tenderness Ankle exam: Present: normal inspection. Absent: tenderness Neurovascular tendon exam: Present: no vascular compromise. Absent: abnormal cap refill, extremity cold to touch, pallor, foot drop Neurological exam: Present: alert, oriented X3 Psychiatric exam: Present: normal affect, normal mood Skin exam: Present: warm, dry, intact, normal color. Absent: rash, cyanosis, diaphoretic <Noé Piper - Last Filed: 05/14/21 02:39> Course Vital Signs 05/13/21 22:16 Temperature 98.3 F Pulse Rate 68 Respiratory 18 Rate Blood Pressure 149/88 O2 Sat by Pulse 99 Oximetry Medical Decision Making <Noé Piper - Last Filed: 05/14/21 02:39> <Krysta Mariano - Last Filed: 05/15/21 16:40> - Medical Decision Making X-ray of the left knee shows mild spurring of the patella with no fracture or dislocation noted. There is no sign of joint effusion. There is mild spurring of the medial femoral and tibial condyles. Patient denies any fevers. She denies any trauma. She states position of comfort is extension. Patient states that the pain is gone after [place]. She was given an Rebel wrap and instructed to follow up with orthopedics. Case discussed with Dr. Mariano (Noé Piper) I was available for consultation in the emergency department. The history and physical exam were done by the midlevel provider. I was consulted for this patients care. I reviewed the case with the midlevel provider and based on their presentation of the patient, I agree with the assessment, medical decision making and plan of care as documented. Chart was dictated using [employer] dictation software. Attempts were made to correct any dictation errors however some typographical errors may persist. (Krysta Mariano) Disposition Is patient prescribed a controlled substance at d/c from ED?: No Time of Disposition: 23:59 <Noé Piper - Last Filed: 05/14/21 02:39> <Krysta Mariano - Last Filed: 05/15/21 16:40> Clinical Impression: Knee pain Disposition: HOME SELF-CARE Condition: Good Additional Instructions: Wear rebel wrap and follow-up with orthopedics. Take Motrin as prescribed and return to the emergency room with any new or worsening symptoms. Prescriptions: Ibuprofen [Motrin] 800 mg PO Q6HR #30 tab Referrals: Elton Ferguson MD [Primary Care Provider] - 1-2 days Franci Donovan DO [Doctor of Osteopathic Medicine] - 1-2 days
[2021-05-13] MEDS ORDERED: ACET/COD 300 MG/30 MG STARTER PACK 6 TAB BTL PO STA (23:59)
== END 2021-05-14 00:20 | disposition home or self-care (01) ==
LOC: EC 21:31
DX: M25.562 Pain in left knee (principal); I10 Essential (primary) hypertension; G40.909 Epilepsy, unspecified, not intractable, without status epilepticus; F32.9 Major depressive disorder, single episode, unspecified; F41.9 Anxiety disorder, unspecified; Z79.1 Long term (current) use of non-steroidal anti-inflammatories (NSAID); Z79.899 Other long term (current) drug therapy

== ENCOUNTER → 2023-03-08 | Outpatient (CLI) | payer OTHER | END | disposition home or self-care (01) | LOC: RADMAMWWP 11:01 | PROVIDERS: ATTEND Family Medicine | DX: Z53.9 Procedure and treatment not carried out, unspecified reason (principal) ==

== ENCOUNTER → 2023-05-12 | Outpatient (CLI) | payer OTHER ==
--- NOTE | 2023-05-12 14:14 | MM ---
Reason for Exam: Clinical finding. Baseline mammogram. Indicated Problems: Skin changes to breast of the right side for 2 Week(s). Patient History: Menarche at age 10. First Full-Term at age 22. Left ovary removed at age 35. Right ovary removed at age 35. Hysterectomy at age 35. Postmenopausal. Previous chemotherapy at age 41. Risk Values: Kathryn 5 year model risk: 0.6%. NCI Lifetime model risk: 6.4%. Prior Study Comparison: Patient's first Mammogram. Tissue Density: There are scattered fibroglandular densities. Findings: Analyzed By CAD. No suspicious mass, group of microcalcifications, or architectural distortion within either breast. No nipple inversion identified. Overall Assessment: Negative, BI-RAD 1 Management: Screening Mammogram of both breasts in 1 year. A clinical breast exam by your physician is recommended on an annual basis and results should be correlated with mammographic findings. This exam should not preclude additional follow-up of suspicious palpable abnormalities. Results were given to the patient verbally at the time of exam. Note on Kathryn scores and lifetime risk: 1. A Kathryn score greater than 3% is considered moderate risk. If this is the case, consider specialist referral to assess eligibility for a risk reducing agent. If overall lifetime risk for the development of breast cancer is 20% or higher, the patient may qualify for future screening with alternating mammogram and breast MRI. Electronically signed and approved by: Avila Jarrett D.O.
--- NOTE | 2023-05-12 14:45 | USB ---
Reason for Exam: Clinical finding. Patient History: Menarche at age 10. First Full-Term at age 22. Left ovary removed at age 35. Right ovary removed at age 35. Hysterectomy at age 35. Postmenopausal. Previous chemotherapy at age 41. Risk Values: Kathryn 5 year model risk: 0.6%. NCI Lifetime model risk: 6.4%. Technique: Method: Targeted. Findings: The upper outer quadrant of both breasts, the axilla of both breasts and the retroareolar of both breasts were scanned. Targeted ultrasound of the right breast from 9 to 12:00 o'clock with additional evaluation of the nipple and axillary tail was performed. Additionally targeted ultrasound of the left breast from 9-12 o'clock with additional evaluation nipple and axillary tail was performed. No solid or cystic lesions identified within the visualized portions of the breast and axilla. No enlarged suspicious lymph nodes identified. Overall Assessment: Negative, BI-RAD 1 Management: Screening Mammogram of both breasts in 1 year. A clinical breast exam by your physician is recommended on an annual basis and results should be correlated with mammographic findings. This exam should not preclude additional follow-up of suspicious palpable abnormalities. Results were given to the patient verbally at the time of exam. Electronically signed and approved by: Avila Jarrett D.O.
--- NOTE | 2023-05-12 15:15 | US ---
EXAMINATION TYPE: US pelvis complete transvag DATE OF EXAM: 05/12/2023 COMPARISON: CT 2012 CLINICAL INDICATION: Female, 47 years old with history of [id number] DYSPAREUNIA; Pain within right side o f vagina x couple months TECHNIQUE: . Transabdominal sonographic images of the pelvis were acquired. Transvaginal sonographi c images were medically necessary to better assess the following anatomy: per order Date of LMP: 10+ year ago 1. Uterus: surgically absent 2. Endometrium: surgically absent 3. Right Ovary: surgically absent 4. Left Ovary: surgically absent 5. Bilateral Adnexa: wnl 6. Posterior cul-de-sac: wnl Postsurgical changes from total hysterectomy and bilateral salpingo-oophorectomy. No free fluid. No u ltrasound evidence for abnormality. Visualized portions of the urinary bladder appear unremarkable. IMPRESSION: Postsurgical changes from total hysterectomy and bilateral salpingo-oophorectomy. No ultr asound evidence for abnormality.
== END | disposition home or self-care (01) ==
LOC: RADMAMWWP 13:35
PROVIDERS: ATTEND Family Medicine
DX: N64.59 Other signs and symptoms in breast (principal); N94.10 Unspecified dyspareunia; M79.629 Pain in unspecified upper arm; R92.323 Mammographic fibroglandular density, bilateral breasts; Z90.710 Acquired absence of both cervix and uterus; Z90.722 Acquired absence of ovaries, bilateral; Z78.0 Asymptomatic menopausal state
CPT/HCPCS: 77066; 76857; 76830; 76642; G0279; 77062

== ENCOUNTER → 2024-07-09 | Outpatient (CLI) | payer BC ==
--- NOTE | 2024-07-09 16:16 | MR ---
EXAMINATION TYPE: MR brain wo con DATE OF EXAM: 07/09/2024 COMPARISON: CT brain 2019 and older studies HISTORY: Amnesia, early onset dementia. TECHNIQUE: Multiplanar, multisequence imaging of the brain and brainstem is performed without IV cont rast. FINDINGS: Diffusion weighted images demonstrate no evidence of a recent infarct or other diffusion abnormality. The ventricular system and cisternal spaces are normal in size and appearance. The brain volume is a ge appropriate. There is occasional tiny focus of T2 hyperintensity scattered throughout the white ma tter bilaterally. Approximately 6-10 tiny scattered lesions are present. Lesions are nonspecific in a ppearance and distribution. Midline structures demonstrate normal morphology. The craniocervical junction appears within normal limits. Normal vascular flow voids are present. The visualized sinuses are clear and the globes are i ntact. IMPRESSION: Mild to minimal nonspecific white matter changes otherwise unremarkable study. [facility], , 07/09/2024 4:13 PM
== END | disposition home or self-care (01) ==
LOC: RADMRIMAIN 15:29
PROVIDERS: ATTEND Family Medicine
DX: R41.3 Other amnesia (principal); R90.82 White matter disease, unspecified; F03.90 Unspecified dementia, unspecified severity, without behavioral disturbance, psychotic disturbance, mood disturbance, and anxiety
CPT/HCPCS: 70551